=== PATIENT | female | born 1980 | race Caucasian/White ===

== ENCOUNTER 2019-08-11 02:46 | Outpatient (CLI) | payer BC ==
[~2019-08-11] VITALS: Ht 162.6 cm; Wt 100.0 kg
[~2019-08-11 02:46] MED LIST: MOTRIN 800800 MG/TAB PO; PERCOCET 325 MG1 TA2 PO; PRENATAL VITAMI1 TAB PO
[2019-08-11 03:03] VITALS: BP 138/87; PULSE 85; TEMP 98.6
[2019-08-11 03:30] VITALS: BP 138/87; PULSE 85
== END 2019-08-11 04:37 | disposition home or self-care (01) ==
LOC: LDRO 02:46 → LDR 05:00
DX: O62.9 Abnormality of forces of labor, unspecified (principal); O46.93 Antepartum hemorrhage, unspecified, third trimester; Z3A.37 37 weeks gestation of pregnancy

== ENCOUNTER 2019-08-11 05:00 | Inpatient (IN) | payer BC ==
[2019-08-11] VITALS (18 sets, daily range): BP systolic 107–146; BP diastolic 56–92; PULSE 69–122; TEMP 98.2–98.8
[~2019-08-11] VITALS: Ht 162.6 cm; Wt 100.0 kg
[2019-08-11 06:35] LABS: BASO % 0.3 % (0.0-2.0); EOS # 0.1 (0.0-0.7); EOS % 1.2 % (0-4.0); GRAN # 7.3 (1.4-6.5); GRAN % 64.8 % (42.2-75.2); HEMATOCRIT 38.3 % (37.0-47.0); HEMOGLOBIN 12.9 g/dl (12.5-16.0); LYMPH # 2.9 (1.2-3.4); LYMPH % 26.2 % (20.0-51.0); MEAN CELL VOLUME 89 fl (80.0-100.0); MEAN CORPUSCULAR HEMOGLOBIN 30 pg (27.0-31.0); MEAN CORPUSCULAR HGB CONC 34 g/dl (33.0-37.0); MEAN PLATELET VOLUME 10.4 fl (7.4-10.4); MONO # 0.7 (0.1-0.6); MONO % 6.5 % (1.7-9.3); PLATELET COUNT 268 K/mm3 (130-400); RED BLOOD COUNT 4.31 M/mm3 (4.10-5.30); REDCELL DISTRIBUTION WIDTH-CV 13.7 % (11.5-14.5)
--- NOTE | 2019-08-11 07:44 | NUR ---
0705 - SVE /-2 with bloody show. Pt becoming more uncomfortable with contractions. 709 - Pt requests epidural, Kenney Marcum CRNA notified. 712 - Kenney Marcum CRNA at [facility]. Pt assisted to sitting position for epidural. Single shot given at 0724, Test dose given at 0726. Difficulty tracing FHR at this time, tracing maternal heart rate at 0722 and 0724. 07 - Pt repositioned to supine position, FHM and toco adjusted and tracing well. 0743 - Dr. Jackson notified of pt progress.
--- NOTE | 2019-08-11 09:53 | NUR ---
0805 - SVE /-1. Dr. Jackson notified. Pt comfortable with epidural. 0828 - FHT show recurrent variable decelerations. Pt reporting increased pressure with contractions. SVE /-1. Cayetano Malik RN of nursery notified. 0845 - Pt reporting constant pressure, increasing with contractions. Cayetano Malik RN of nursery to bedside. 0848 - Dr. Jackson to pt bedside. Pt and room prepped for delivery. 0855 - Pt pushing with Dr. Jackson at bedside. 0901 - Spontaneous delivery of viable male . Infant placed on mother's abdomen, care transferred to Paulina Malik RN of nursery. 0904 - Spontaneous delivery of placenta. Pitocin started at 333mu/ml per protocol. 2nd degree repair performed by Dr. Jackson, pt bladder drained with red robbin by physician. See physician notes. Pericare provided, pt repositioned for comfort, clean pad and ice pack placed on perineum. Fundus firm with minimal bleeding. Pt denies further needs at this time.
--- NOTE | 2019-08-11 11:57 | NUR ---
Pt up to bathroom via wheelchair at 1040. Pt transferred self to toilet, pericare assisted, new pad, panties, and gown placed. Pt transferred self back to wheelchair and taken by wheelchair to room. Pt oriented to room, call light within reach. Pt denies needs at this time.
[2019-08-12 01:00] VITALS: BP 109/67; PULSE 77; TEMP 98.6
[2019-08-12 07:30] VITALS: BP 118/74; PULSE 87; TEMP 98.5
--- NOTE | 2019-08-12 07:45 | NUR ---
Rests in bed, alert. Ibuprofen 600 mg given per request and as ordered. Brought baby into room from nursery. Patient states going to feed baby.
[2019-08-12 16:30] VITALS: BP 124/75; PULSE 79; TEMP 98.5
--- NOTE | 2019-08-12 16:30 | NUR ---
Rests in bed, alert. Request pain medication. 1640 Ibuprofen 600 mg given.
[2019-08-12 20:45] VITALS: BP 117/76; PULSE 71; TEMP 97.8
[2019-08-13 07:50] VITALS: BP 113/77; PULSE 80; TEMP 98.5
[2019-08-13] MEDS ORDERED: MOTRIN 800800 MG/TAB PO (12:20)
== END 2019-08-13 14:20 | disposition home or self-care (01) | DRG 807 ==
LOC: LDRO 05:00 → LDR 05:01 → OB 12:12
PROVIDERS: Obstetrics & Gynecology; ADMIT Student in an Organized Health Care Education/Training Program
PROC: 10E0XZZ Delivery of Products of Conception, External Approach (ICD-10-PCS; principal; 2019-08-11)
PROC: 0KQM0ZZ Repair Perineum Muscle, Open Approach (ICD-10-PCS; 2019-08-11)
DX: O99.824 Streptococcus B carrier state complicating childbirth (principal); Z37.0 Single live birth; Z3A.37 37 weeks gestation of pregnancy; Z88.0 Allergy status to penicillin; O70.1 Second degree perineal laceration during delivery; O69.89X0 Labor and delivery complicated by other cord complications, not applicable or unspecified
CPT/HCPCS: J0690; J2590; J2795; J7120

== ENCOUNTER → 2020-11-28 | Outpatient (CLI) | payer BC | LOC: MC.RAD 08:48 | DX: N63.20 Unspecified lump in the left breast, unspecified quadrant (principal) ==

== ENCOUNTER → 2022-04-09 | Outpatient (CLI) | payer BC | LOC: MC.RAD 14:08 | DX: Z12.31 Encounter for screening mammogram for malignant neoplasm of breast (principal) ==

== ENCOUNTER → 2023-06-23 | Outpatient (CLI) | payer BC | LOC: MC.RAD 13:30 | DX: Z12.31 Encounter for screening mammogram for malignant neoplasm of breast (principal) ==